=== PATIENT | female | born 1940 | race Caucasian/White ===

== ENCOUNTER → 2016-08-04 | Outpatient (CLI) | payer OTHER ==
[2016-08-04 13:30] LABS: PROTHROMBIN TIME (PATIENT) 11.1 SECONDS (9.0-12.0)
[2016-08-04 13:42] LABS: HEMATOCRIT 35.6 % (37-47)
[2016-08-04 14:13] LABS: ALT/SGPT 50 U/L (12-78); BLOOD UREA NITROGEN 20 mg/dl (7-18); BUN/CREATININE RATIO 22.3 (10-20); CALCIUM 9.7 mg/dl (8.5-10.1); CARBON DIOXIDE 27 mmol/L (21-32); CHLORIDE 98 mmol/L (98-107); CREATININE 0.88 mg/dl (0.60-1.20); GLUCOSE 99 mg/dl (70-99); POTASSIUM 4.2 mmol/L (3.5-5.1); SODIUM 137 mmol/L (136-145)
[2016-08-04 14:23] LABS: CHOLESTEROL 122 mg/dl (0-200); CHOLESTEROL/HDL RATIO 2.7; HDL CHOLESTEROL 45 mg/dl; LDL CHOLESTEROL CALCULATED 59 mg/dl; THYROID STIMULATING HORMONE 0.793 uIu/ml (0.300-4.500); TRIGLYCERIDES 88 mg/dl (0-150); VERY LOW DENSITY LIPOPROT CALC 18 mg/dl
== END | disposition home or self-care (01) ==
LOC: C.LABMFLN 11:30
PROVIDERS: ATTEND Family Medicine
DX: I10 Essential (primary) hypertension (principal); E78.00 Pure hypercholesterolemia, unspecified; I25.10 Atherosclerotic heart disease of native coronary artery without angina pectoris; Z86.39 Personal history of other endocrine, nutritional and metabolic disease

== ENCOUNTER → 2017-02-04 | Outpatient (CLI) | payer OTHER ==
[2017-02-04 18:02] LABS: ALT/SGPT 22 U/L (12-78); BLOOD UREA NITROGEN 13 mg/dl (7-18); BUN/CREATININE RATIO 16.5 (10-20); CARBON DIOXIDE 31 mmol/L (21-32); CHLORIDE 101 mmol/L (98-107); CREATININE 0.81 mg/dl (0.60-1.20); GLUCOSE 94 mg/dl (70-99); POTASSIUM 2.9 mmol/L (3.5-5.1); SODIUM 140 mmol/L (136-145); URIC ACID 11.5 mg/dl (2.6-7.2)
== END | disposition home or self-care (01) ==
LOC: C.LABMFLN 12:42
PROVIDERS: ATTEND Family Medicine
DX: E78.00 Pure hypercholesterolemia, unspecified (principal); Z86.39 Personal history of other endocrine, nutritional and metabolic disease; I48.91 Unspecified atrial fibrillation; I50.30 Unspecified diastolic (congestive) heart failure; M10.9 Gout, unspecified; E55.9 Vitamin D deficiency, unspecified

== ENCOUNTER → 2017-04-14 | Outpatient (CLI) | payer OTHER ==
[2017-04-14 13:14] LABS: BLOOD UREA NITROGEN 22 mg/dl (7-18); CALCIUM 9.3 mg/dl (8.5-10.1); CARBON DIOXIDE 35 mmol/L (21-32); CHLORIDE 104 mmol/L (98-107); CREATININE 0.91 mg/dl (0.60-1.20); GLUCOSE 96 mg/dl (70-99); POTASSIUM 3.9 mmol/L (3.5-5.1); SODIUM 142 mmol/L (136-145)
== END | disposition home or self-care (01) ==
LOC: C.LABMFLN 11:27
PROVIDERS: ATTEND Family Medicine
DX: I10 Essential (primary) hypertension (principal); E78.00 Pure hypercholesterolemia, unspecified; I48.91 Unspecified atrial fibrillation; E87.6 Hypokalemia; M10.9 Gout, unspecified

== ENCOUNTER → 2017-08-18 | Outpatient (CLI) | payer OTHER ==
[2017-08-18 18:07] LABS: BLOOD UREA NITROGEN 39 mg/dl (7-18); CALCIUM 8.7 mg/dl (8.5-10.1); CARBON DIOXIDE 36 mmol/L (21-32); CREATININE 1.24 mg/dl (0.60-1.20); GLUCOSE 111 mg/dl (70-99); POTASSIUM 3.6 mmol/L (3.5-5.1); SODIUM 134 mmol/L (136-145)
== END | disposition home or self-care (01) ==
LOC: C.LABMFLN 10:49
PROVIDERS: ATTEND Family Medicine
DX: E87.5 Hyperkalemia (principal)

== ENCOUNTER → 2017-11-17 | Outpatient (CLI) | payer OTHER ==
[2017-11-17 17:46] LABS: ALT/SGPT 26 U/L (12-78); BLOOD UREA NITROGEN 33 mg/dl (7-18); CALCIUM 9.2 mg/dl (8.5-10.1); CARBON DIOXIDE 34 mmol/L (21-32); CREATININE 1.23 mg/dl (0.60-1.20); GLUCOSE 69 mg/dl (70-99); POTASSIUM 3.7 mmol/L (3.5-5.1); SODIUM 135 mmol/L (136-145)
[2017-11-17 17:56] LABS: LDL CHOLESTEROL (DIRECT) 45 mg/dl
== END | disposition home or self-care (01) ==
LOC: C.LABMFLN 11:11
PROVIDERS: ATTEND Family Medicine
DX: E78.00 Pure hypercholesterolemia, unspecified (principal); Z86.39 Personal history of other endocrine, nutritional and metabolic disease; E05.00 Thyrotoxicosis with diffuse goiter without thyrotoxic crisis or storm; I11.0 Hypertensive heart disease with heart failure; M10.9 Gout, unspecified; E87.6 Hypokalemia; I48.91 Unspecified atrial fibrillation; R26.9 Unspecified abnormalities of gait and mobility; I50.30 Unspecified diastolic (congestive) heart failure; E03.9 Hypothyroidism, unspecified